=== PATIENT | female | born 1970 | race Two or more races ===

== ENCOUNTER 2018-04-23 11:06 | Outpatient (CLI) | payer OTHER | END 2018-04-23 11:19 | disposition home or self-care (01) | LOC: SONOGRAMA 11:06 | DX: E04.1 Nontoxic single thyroid nodule (principal) ==

== ENCOUNTER 2021-02-08 08:36 | Outpatient (CLI) | payer OTHER | END 2021-02-08 09:15 | disposition home or self-care (01) | LOC: SONOGRAMA 08:36 | PROVIDERS: ATTEND Pathology Anatomic Pathology & Clinical Pathology | DX: E07.89 Other specified disorders of thyroid (principal); E22.2 Syndrome of inappropriate secretion of antidiuretic hormone ==

== ENCOUNTER 2022-06-17 11:39 | Emergency (ER) | payer OTHER ==
[~2022-06-17] VITALS: Ht 162.6 cm; Wt 73.5 kg
[2022-06-17] MEDS ORDERED: NORFLEX100MG PO (16:16)
== END 2022-06-17 18:44 | disposition home or self-care (01) ==
LOC: ER 11:39
DX: M54.2 Cervicalgia (principal); R51.9 Headache, unspecified; R20.2 Paresthesia of skin; Z88.0 Allergy status to penicillin; Z88.2 Allergy status to sulfonamides; Z88.6 Allergy status to analgesic agent; Z88.1 Allergy status to other antibiotic agents